=== PATIENT | female | born 1980 | race African-American/Black ===

== ENCOUNTER 2021-12-12 09:54 | Outpatient (CLI) | payer BC | END 2021-12-12 09:55 | disposition home or self-care (01) | LOC: NAV RAD 09:54 | PROVIDERS: ATTEND Internal Medicine | DX: M54.2 Cervicalgia (principal); M54.50 Low back pain, unspecified; M47.812 Spondylosis without myelopathy or radiculopathy, cervical region; M43.17 Spondylolisthesis, lumbosacral region | CPT/HCPCS: 72040; 72100 ==

== ENCOUNTER 2022-09-19 13:59 | Emergency (ER) | payer OTHER, BC ==
[2022-09-19] MEDS ORDERED: Ibuprofen 200 MG TAB ONE (14:23)
== END 2022-09-19 15:07 | disposition home or self-care (01) ==
LOC: NAV ERS 13:59
DX: S39.012A Strain of muscle, fascia and tendon of lower back, initial encounter (principal); S16.1XXA Strain of muscle, fascia and tendon at neck level, initial encounter; M51.36 Other intervertebral disc degeneration, lumbar region; V89.2XXA Person injured in unspecified motor-vehicle accident, traffic, initial encounter
CPT/HCPCS: 72125; 72131